=== PATIENT | female | born 1945 | race Caucasian/White ===

== ENCOUNTER 2021-12-30 10:44 | Emergency (ER) | payer OTHER ==
[2021-12-30 11:37] VITALS: BP 127/82; PULSE 71; RESP 19; TEMP 97.9; BMI 24.0
== END 2021-12-30 13:53 | disposition home or self-care (01) ==
LOC: JERFT 10:44
DX: M79.662 Pain in left lower leg (principal)
CPT/HCPCS: 93971-TC; 99284-25

== ENCOUNTER 2023-10-09 17:06 | Emergency (ER) | payer OTHER ==
[2023-10-09 17:29] VITALS: BP 139/108; PULSE 68; RESP 20; BMI 26.7
[2023-10-09] MEDS ORDERED: ACETAMINOPHEN 1000 MG/100 ML BAG IVPB ONE (19:05)
[2023-10-09] MEDS ORDERED: DIPHTH,PERTUSS(ACELL),TET 0.5 ML DISP.SYRIN IM ONE ×2 (19:14→21:13)
== END 2023-10-09 21:44 | disposition home or self-care (01) ==
LOC: JER 17:06
PROC: 0HQ1XZZ Repair Face Skin, External Approach (ICD-10-PCS; principal; 2023-10-09)
DX: S01.81XA Laceration without foreign body of other part of head, initial encounter (principal); M25.461 Effusion, right knee; M25.561 Pain in right knee; R07.9 Chest pain, unspecified; W01.0XXA Fall on same level from slipping, tripping and stumbling without subsequent striking against object, initial encounter
CPT/HCPCS: 70450-TC; 71046-TC-FY; 72125-TC; 72170-TC-FY; 73030-TC-RT-FY; 73562-TC-LT-FY; 93005; 93010; 99285-25